=== PATIENT | male | born 1955 | race Caucasian/White ===

== ENCOUNTER 2016-11-29 05:59 | Day surgery (SDC) | payer BC ==
[~2016-11-29] VITALS: Ht 175.3 cm; Wt 106.6 kg
[~2016-11-29 05:59] MED LIST: AMLODIPINE5 MG PO; ASA LOW DOSE81 MG OR; ATORVASTATIN CA40 MG PO; AUGMENTIN875TAB PO; BENZONATATE200 MG PO; FLONASE NASAL50 MCG; LISINOPRIL20 MG PO; LOTREL1 CA3 OR; METOPROL TAR50 MG PO; SIMVASTATIN5 MG; TOPROL XL PO; VYTORIN 10/201 TAB OR; VYTORIN 10/401 TAB
[2016-11-29] MEDS ORDERED: CLONIDINE0.1 MG PO (06:09)
[2016-11-29] MEDS ORDERED: PERCOCET 5/325M1 TAB PO (09:28)
[2016-11-29 13:56] VITALS: BP 128/61
== END 2016-11-29 10:27 | disposition home or self-care (01) | DRG 352 ==
LOC: ORM 05:59
PROVIDERS: ATTEND Surgery
PROC: 0YUA0JZ Supplement Bilateral Inguinal Region with Synthetic Substitute, Open Approach (ICD-10-PCS; principal; 2016-11-29)
PROC: 0VBH0ZZ Excision of Bilateral Spermatic Cords, Open Approach (ICD-10-PCS; 2016-11-29)
DX: K40.20 Bilateral inguinal hernia, without obstruction or gangrene, not specified as recurrent (principal); I10 Essential (primary) hypertension; D17.6 Benign lipomatous neoplasm of spermatic cord; E78.5 Hyperlipidemia, unspecified
CPT/HCPCS: J2710

== ENCOUNTER 2019-05-06 09:39 | Emergency (ER) | payer BC ==
[~2019-05-06] VITALS: Ht 175.3 cm; Wt 107.7 kg
[~2019-05-06 09:39] MED LIST changes: +CLONIDINE0.1 MG PO; +PERCOCET 5/325M1 TAB PO
[2019-05-06] MEDS ORDERED: ASPIRIN81 MG PO (10:00)
[2019-05-06] MEDS ORDERED: NIFEDIPINE30 MG PO (10:00)
[2019-05-06 10:17] LABS: HEMATOCRIT 46.7 % (39.0-50.0); HEMOGLOBIN 15.6 g/dl (14.0-18.0); IMMATURE GRANULOCYTES 1.1 % (0.0-5.0); MEAN CELL VOLUME 86.2 fL CALC (80.0-100.0); MEAN CORPUSCULAR HGB 28.8 pG CALC (26.0-32.0); MEAN CORPUSCULAR HGB CONC 33.4 g/L CALC (32.0-36.0); NEUT# 5.94 thou/uL (1.82-7.42); RED BLOOD COUNT 5.42 mill/uL (4.70-6.10); RED CELL DISTRI WIDTH 12.6 % (11.5-15.5)
[2019-05-06 10:28] LABS: ANION GAP 14 (6-22 (CALC)); BUN 17 mg/dL (8-23); BUN/CREATININE RATIO 24 (12-20 (CALC)); CARBON DIOXIDE 25 mmol/l (22-30); CHLORIDE 105 mmol/l (95-108); CREATININE 0.7 mg/dL (0.7-1.3); GFR > 60 ML/MIN (>=60 (CALC)); GFR FOR AFR.AMER. > 60 ML/MIN (>=60 (CALC)); SODIUM 140 mmol/l (137-146)
[2019-05-06 12:34] VITALS: BP 176/98
== END 2019-05-06 12:39 | DRG 313 ==
LOC: ED 09:39 → ED-I 09:58 → ED 12:39
PROVIDERS: Family Medicine
DX: R07.9 Chest pain, unspecified (principal); I10 Essential (primary) hypertension
CPT/HCPCS: J1644

== ENCOUNTER 2021-09-26 07:46 | Emergency (ER) | payer BC ==
[2021-09-26] VITALS (14 sets, daily range): BP systolic 161–221; BP diastolic 91–120
[~2021-09-26] VITALS: Ht 175.3 cm; Wt 114.5 kg
[~2021-09-26 07:46] MED LIST changes: +ASPIRIN81 MG PO; +DIOVAN80 MG PO; +GUANFACINE1 MG PO; +NIFEDIPINE30 MG PO; +SPIRONOLACTONE25 MG PO; +TRANDATE300 MG PO
[2021-09-26 08:12] LABS: HEMATOCRIT 44.9 % (39.0-50.0); HEMOGLOBIN 15.1 g/dl (14.0-18.0); IMMATURE GRANULOCYTES 1.8 % (0.0-5.0); MEAN CORPUSCULAR HGB 29.3 pG CALC (26.0-32.0); MEAN CORPUSCULAR HGB CONC 33.6 g/dL CAL (32.0-36.0); NEUT# 4.48 thou/uL (1.82-7.42); RED BLOOD COUNT 5.16 mill/uL (4.70-6.10); RED CELL DISTRI WIDTH 12.5 % (11.5-15.5)
[2021-09-26 08:37] LABS: ALBUMIN 4.4 g/dL (3.2-5.0); ALKALINE PHOSPHATASE 60 u/l (38-126); ANION GAP 10 (6-22 (CALC)); BILIRUBIN, TOTAL 0.7 mg/dL (0.0-1.4); BUN 19 mg/dL (8-23); BUN/CREATININE RATIO 24 (12-20 (CALC)); CARBON DIOXIDE 25 mmol/l (22-30); CHLORIDE 107 mmol/l (95-108); CREATININE 0.8 mg/dL (0.7-1.3); GFR > 60 ML/MIN (>=60 (CALC)); GFR FOR AFR.AMER. > 60 ML/MIN (>=60 (CALC)); POTASSIUM 4.2 mmol/l (3.5-5.1); SGOT/AST 31 u/l (19-48); SODIUM 138 mmol/l (137-146); TOTAL PROTEIN 7.2 g/dL (6.3-8.2)
[2021-09-26] MEDS ORDERED: CLONIDINE0.2 MG PO (08:53)
== END 2021-09-26 11:03 | disposition home or self-care (01) | DRG 305 ==
LOC: ED 07:46
PROVIDERS: Internal Medicine
DX: I10 Essential (primary) hypertension (principal); E78.00 Pure hypercholesterolemia, unspecified

== ENCOUNTER 2021-11-30 09:09 | Day surgery (SDC) | payer BC ==
[~2021-11-30] VITALS: Ht 175.3 cm; Wt 114.3 kg
[~2021-11-30 09:09] MED LIST changes: +CLONIDINE0.2 MG PO; +HYDRALAZINE HYD25 MG; +NORVASC2.5 M1 PO
[2021-11-30] MEDS ORDERED: MOTRIN800 MG PO (12:06)
[2021-11-30 13:48] VITALS: BP 122/68
== END 2021-11-30 12:30 | disposition home or self-care (01) | DRG 572 ==
LOC: ORM 09:09
PROVIDERS: ATTEND Surgery
PROC: 0JB70ZZ Excision of Back Subcutaneous Tissue and Fascia, Open Approach (ICD-10-PCS; principal; 2021-11-30)
DX: D17.1 Benign lipomatous neoplasm of skin and subcutaneous tissue of trunk (principal); I10 Essential (primary) hypertension; E78.5 Hyperlipidemia, unspecified